=== PATIENT | female | born 1970 | race Caucasian/White ===

== ENCOUNTER 2018-09-12 11:50 | Emergency (ER) | payer OTHER | END 2018-09-12 13:22 | disposition home or self-care (01) | LOC: JERFT 11:50 ==

== ENCOUNTER 2019-01-05 04:33 | Emergency (ER) | payer OTHER ==
[2019-01-05 04:45] VITALS: BP 135/95; PULSE 75; TEMP 98.4; BMI 21.6
[2019-01-05] MEDS ORDERED: CLINDAMYCIN HCL 300 MG CAPSULE PO ONE (04:47)
[2019-01-05] MEDS ORDERED: KETOROLAC TROMETHAMINE 60 MG/2 ML VIAL IM ONE (04:51)
[2019-01-05] MEDS ORDERED: CLINDAMYCIN HCL 150 MG CAPSULE (FP) PO ONE (05:01)
[2019-01-05] MEDS ORDERED: KETOROLAC TROMETHAMINE 60 MG/2 ML VIAL ONE (05:04)
[2019-01-05] MEDS ORDERED: CLINDAMYCIN HCL 150 MG CAPSULE (FP) ONE (05:05)
--- NOTE | 2019-01-05 05:11 | PDOC ---
History of Present Illness - General Chief Complaint: Toothache Stated Complaint: TOOTH ACHE Time Seen by Provider: 01/05/19 04:47 History Source: Patient Exam Limitations: No Limitations - History of Present Illness Initial Comments: 01/05/19 05:05 This is a 48-year-old female who comes in complaining of swelling in her left side of her face. Patient is seeing an joint cutter machine for some dental work and said over the last 24 hours at her face is becoming swollen and painful. Patient denies any fevers or chills. Patient denies any other complaints. Patient says she did take a Percocet for the pain without relief. Allergies: as per nursing notes Past Medical History: none Social history: Lives with family. No smoking. No alcohol. No illicit drugs. Surgical history: None General: No fevers or chills, no weakness, no weight loss HEENT: No change in vision. No sore throat,. No ear pain him a dental pain as per history of present illness CardioVascular: no chest discomfort. No shortness of breath Respiratory:No cough, or wheezing. Gastrointestinal: no nausea, vomiting, diarrhea or constipation, No rectal bleeding Genitourinary: No dysuria, hematuria, or frequency Musculoskeletal: No joint or muscle pain or swelling Neurologic: No headache, vertigo, dizziness or loss of consciousness Psychiatric: nor depression Skin: No rashes or easy bruising Endocrine: no increased thirst or abnormal weight change Allergic: no skin or latex allergy All other systems reviewed and normal GENERAL: The patient is awake, alert, and fully oriented, in no acute distress. HEAD: Normal with no signs of trauma. MOUTH: The soft tissues of then the face are swollen however there is no palpable collection. No periorbital involvement there is poor dentition upper molars which are most likely the source of the infection. EYES: Pupils equal, round and reactive to light, extraocular movements intact, sclera anicteric, conjunctiva clear. EXTREMITIES:atraumatic, Normal range of motion, no edema. NEUROLOGICAL: Normal speech, normal gait. PSYCH: Normal mood, normal affect. SKIN: Warm, Dry, normal turgor, no rashes or lesions noted Assessment and plan: This is a 48-year-old female with a periodontal infection. Patient does have a history of C. difficile however said she is unable to take either Augmentin or Flagyl because of her Crohn's disease. Patient given a low- dose of clindamyacin and told that she must follow-up with her dental provider/ joint cutter machine today. Past History - Past Medical History Allergies/Adverse Reactions: Allergies Allergy/AdvReac Type Severity Reaction Status Date / Time VITAMIN Allergy Uncoded 09/12/18 11:56 Home Medications: Ambulatory Orders Albuterol 0.083% Nebulizer Sierra [Ventolin 0.083% Nebulizer Soln -] 1 amp NEB PRN 01/05/19 Clindamycin [Cleocin -] 300 mg PO BID #10 capsule 01/05/19 Mesalamine [Apriso] 0.375 gm PO DAILY 01/05/19 Naloxegol Oxalate [Movantik] 25 mg PO DAILY 01/05/19 Oxycodone HCl 15 mg PO QID 01/05/19 Tizanidine HCl 4 mg PO DAILY 01/05/19 Venlafaxine HCl [Effexor -] 75 mg PO DAILY 01/05/19 Zolpidem Tartrate [Ambien] 10 mg PO HS PRN 01/05/19 COPD: No Psychiatric Problems: Yes - Surgical History Appendectomy: No Gastric Stapling: No Neurologic Surgery: No - Immunization History Immunization Up to Date: No - Psycho Social/Smoking Cessation Hx Smoking History: Unknown if ever smoked Have you smoked in the past 12 months: No Number of Cigarettes Smoked Daily: 0 Information on smoking cessation initiated: No Hx Alcohol Use: No Drug/Substance Use Hx: No *Physical Exam - Vital Signs Last Vital Signs Temp Pulse Resp BP Pulse Ox 98.4 F 75 14 135/95 96 01/05/19 04:36 01/05/19 04:36 01/05/19 04:36 01/05/19 04:36 01/05/19 04:36 Discharge - Discharge Information Problems reviewed: Yes Clinical Impression/Diagnosis: Dental infection Condition: Good Disposition: HOME - Admission No - Follow up/Referral - Patient Discharge Instructions Additional Instructions: Take the antibiotic twice a day. Make sure you take probiotics with that in addition to having a small container of yogurt every day. It is very important that you go to your dental provider today and be evaluated. Return to the emergency department immediately with ANY new, persistent or worsening symptoms. Continue any medications as previously prescribed by your physician. You should follow up with your primary doctor as soon as possible regarding today's emergency department visit. . Please make sure your doctor reviews the results of your emergency evaluation. Thank you for coming to the Emergency Department today for your care. It was a pleasure to see you today. Please note that your evaluation is INCOMPLETE until you follow-up with your doctor. - Post Discharge Activity
== END 2019-01-05 05:22 | disposition home or self-care (01) ==
LOC: FER 04:33
PROC: 3E0233Z Introduction of Anti-inflammatory into Muscle, Percutaneous Approach (ICD-10-PCS; principal; 2019-01-05)
DX: K08.9 Disorder of teeth and supporting structures, unspecified (principal); F99 Mental disorder, not otherwise specified; Z88.8 Allergy status to other drugs, medicaments and biological substances
CPT/HCPCS: 99282-25